=== PATIENT | male | born 1985 | race Caucasian/White ===

== ENCOUNTER 2020-04-04 20:39 | Emergency (ER) | payer OTHER ==
[~2020-04-04] VITALS: Ht 167.6 cm; Wt 85.7 kg
--- NOTE | 2020-04-04 21:17 | NUR ---
PREFERRED CONTACT. [facility] [phone]
--- NOTE | 2020-04-04 21:21 | NUR ---
PT RESTING IN VIEW OF NURSES STATION, NO COMPLAINTS AT THIS TIME
--- NOTE | 2020-04-04 21:43 | NUR ---
PT MOVED TO ROOM 3 SITTER IN VIEW OF PT AT THIS TIME
--- NOTE | 2020-04-04 21:44 | NUR ---
THIS IS A 34Y M THAT COMES IN TONIGHT WITH LACS TO BOTH WRISTS. PT STS HE IS NOT CURRENTLY SUICIDAL BUT HE WAS AT THE TIME. HE STS HE FOUND OUT HIS GIRLFRIEND OF 5YRS IS AND IT IS NOT HIS CHILD. PT STS HE DID NOT KNOW HOW TO FEEL AFTER THIS INFORMATION. PT APPEARS TO BE CALM AND COOPERATIVE WITH STAFF AT THIS TIME. EDUCATED ON NEED FOR URINE SAMPLE
[2020-04-04 21:46] LABS: BASOPHILS % (AUTO) 1 % (0-1); EOSINOPHILS % (AUTO) 1 % (1-7); LYMPHOCYTES % (AUTO) 26 % (22-44); MEAN CORPUSCULAR HEMOGLOBIN 31.9 pg (27.5-34.5); MEAN CORPUSCULAR HGB CONC 34.1 g/dL (33.2-36.2); MEAN PLATELET VOLUME 7.4 fL (7.4-10.4); MONOCYTES % (AUTO) 9 % (2-9); NEUTROPHILS % (AUTO) 64 % (42-75); PLATELET COUNT 282 x10^3/uL (130-400); RED BLOOD COUNT 4.83 x10^6/uL (4.38-5.82); RED CELL DISTRIBUTION WIDTH 13.3 % (9.4-14.8)
[2020-04-04 21:49] LABS: ALBUMIN 3.8 g/dL (3.4-5.0); ANION GAP 9 mmol/L (5-15); CALCIUM 8.5 mg/dL (8.5-10.1); CHLORIDE 104 mmol/L (98-107); CREATININE 0.61 mg/dL (0.7-1.3); MD NO
[2020-04-04 21:50] LABS: SALICYLATE LEVEL < 1.7 mg/dL (2.8-20.0)
--- NOTE | 2020-04-04 23:05 | NUR ---
WOUNDS CLEANSED PER MD, PT EDUCATED ON TELEPSYCH PROCESS, DR DE PAZ AT BEDSIDE
--- NOTE | 2020-04-05 00:44 | NUR ---
PT REMINDED OF NEED FOR URINE SAMPLE. RESTING ON [facility] SITTER IN HALLWAY FOR SAFETY
--- NOTE | 2020-04-05 01:44 | NUR ---
PT RESTING ON [employer] LIGHTS DIMMED NO NEEDS AT THIS TIME. SITTER IN HALLWAY FOR SAFETY
--- NOTE | 2020-04-05 02:47 | NUR ---
PT NOW SLEEPING ON GURNEY NO NEEDS AT THIS TIME RESP EVEN AND UNLABORED. SITTER IN VIEW FOR SAFETY.
--- NOTE | 2020-04-05 03:45 | NUR ---
PT RESTING ON GURNEY LIGHTS DIMMED NO NEEDS AT THIS TIME, SITTER AT BEDSIDE
--- NOTE | 2020-04-05 04:05 | NUR ---
PT RESTING ON [employer] SIMMS IN VIEW
--- NOTE | 2020-04-05 05:00 | NUR ---
PT RESTING ON [employer] SIMMS IN VIEW
--- NOTE | 2020-04-05 06:43 | NUR ---
URINE SAMPLE SENT TO LAB, PT BREATHALYZED 0.036 AT THIS TIME
--- NOTE | 2020-04-05 07:03 | NUR ---
Report from Kristina YEE. Pt resting in bed with eyes closed, resp even and unlabored, NADN. Room remains secured, sitter within eyesight of pt, all safety measures observed. Awaiting telepsych.
[2020-04-05 07:07] LABS: AMPHETAMINE SCREEN, URINE Negative (Negative); BARBITURATE SCREEN, URINE Negative (Negative); BENZODIAZEPINE SCREEN, URINE Negative (Negative); CANNABINOID SCREEN, URINE Negative (Negative); COCAINE SCREEN, URINE Negative (Negative); METHADONE SCREEN, URINE Negative (Negative); OPIATE SCREEN, URINE Negative (Negative)
--- NOTE | 2020-04-05 08:14 | NUR ---
Pt continues resting in bed with eyes closed, resp even and unlabored, NADN. Room remains secured, sitter within eyesight of pt, all safety measures observed.
--- NOTE | 2020-04-05 08:38 | NUR ---
Pt provided breakfast tray, SI precautions observed. Pt reports he was situationally upset last night as well as intoxicated which led him to SI at that time. Pt denies SI at this time. Pt requesting cell phone to call his boss to let them know he will not be at work. Pt provided with his cell phone from his personal belongings. Pt advised that at this time we are awaiting psych STACKER ATTENDANT to eval him for POC. Pt verbalizes understanding, denies other needs.
[2020-04-05 08:54] VITALS: BP 110/62
--- NOTE | 2020-04-05 10:05 | NUR ---
pt resting in bed, no change
[2020-04-05] MEDS ORDERED: ACETAMINOPHEN 325 MG TABLET ONE (11:36)
--- NOTE | 2020-04-05 11:43 | NUR ---
PT COMPLAINED OF HEAD MONA, NOTIFIED MD, ADMIN MEDS,
[2020-04-05] MEDS ORDERED: ACETAMINOPHEN 325 MG TABLET PO ONE (12:00)
--- NOTE | 2020-04-05 12:25 | NUR ---
BREAK RN FOR PRIMARY RN'S MO AND ELISEO. PT RESTING IN POSITION OF COMFORT. DENIES ANY PAIN AND NEED TO USE RESTROOM. ALL NEEDS MET AND ADDRESSED. FALL PRECAUTIONS IN PLACE. SITTER AT DOOR FOR CONTINUOUS SAFETY OBSERVATION. SAFE AND SECURE ENVIRONMENT PROVIDED IN MONITORED ROOM. GARAGE DOORS DOWN. ALL BELONINGS REMAIN LOCKED IN CABINET FOR SAFETY.
--- NOTE | 2020-04-05 12:45 | NUR ---
BREAK RN. PSYCH BIT TRIPOLER MULUGETA AT BEDSIDE FOR EVALUATION. SITTER REMAINS AT DOOR FOR CONTINUOUS SAFETY OBSERVATION.
--- NOTE | 2020-04-05 13:07 | NUR ---
REPORT AND TRANSFER OF CARE BACK TO PRIMARY RN'S ELISEO AND MO
--- NOTE | 2020-04-05 13:09 | NUR ---
pt cleared for dc, by psych, vss, no distress,
== END 2020-04-05 13:22 | disposition home or self-care (01) ==
LOC: ED 22:54
DX: S61.512A Laceration without foreign body of left wrist, initial encounter (principal); S61.511A Laceration without foreign body of right wrist, initial encounter; T14.91XA Suicide attempt, initial encounter; F32.1 Major depressive disorder, single episode, moderate; F10.120 Alcohol abuse with intoxication, uncomplicated; X83.8XXA Intentional self-harm by other specified means, initial encounter; Y93.89 Activity, other specified; Y92.89 Other specified places as the place of occurrence of the external cause; Y99.8 Other external cause status; Y90.0 Blood alcohol level of less than 20 mg/100 ml
CPT/HCPCS: 36415; 80048; 80307; 82040; 85025; 99284